=== PATIENT | male | born 1960 | race Caucasian/White ===

== ENCOUNTER 2016-10-13 07:49 | Observation (INO) ==
[2016-10-13] MEDS ORDERED: Aspirin 81 MG TAB.CHEW PO ONE (08:17)
--- NOTE | 2016-10-13 08:21 | Emergency Department Note ---
Disposition Clinical Impression: Unstable angina Chest pain Qualifiers: Chest pain type: unspecified Qualified Code(s): R07.9 - Chest pain, unspecified Disposition: Admitted As Inpatient Condition: Good Time of Disposition: 10:39 General Adult HPI - General Chief complaint: ED Abdominal Pain Stated complaint: epigastric pain and nausea Time Seen by Provider: 10/13/16 08:05 Source: patient Mode of arrival: ambulatory Limitations: no limitations Nursing Notes Reviewed: Yes Vital Signs Reviewed: Yes - History of Present Illness HPI Narrative: 56-year-old male history of CAD s/p 2 stents, severe hyperlipidemia, hypertension, diabetes presents with right upper quadrant pain. Reports pain started at 1999 last night after baking a cake and doing some errands. He went to lay down he felt and began to experience a sharp sensation to the right chest with some radiation to the midsternum. Pain is intermittent and currently there. He felt diaphoretic, short of breath and nauseated. This did not feel like his prior heart attacks which is more left and radiates into the jaw, he subsequently did not take any nitro for this pain. He denies any headache, recent illness, cough or abdominal pain. Denies any injury or trauma to the area. Denies diarrhea, constipation, or urinary symptoms. 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 Last heart catheterization over one year ago. Reports over 13 heart catheterizations. He took his baby aspirin this morning 630. He takes warfarin for his atrial fibrillation. Reports multiple ablations, he did experience some palpitations over the past few days which is odd for him. No changes in recent medications. Dr. Licona is his PCP. He has been started on a new medication for his hyperlipidemia, of note he reports it has been as high as 1999. History of cholecystectomy. Denies any alcohol use. Pain Scale: 7 - Related Data Home Medications Medication Instructions Recorded Confirmed ALPRAZolam [Xanax 0.5 MG Tablet] 0.5 mg PO BID PRN 10/13/16 10/13/16 Aspirin [Lo-Dose Aspirin EC] 81 mg PO QAM 10/13/16 10/13/16 Carvedilol [Coreg] 25 mg PO BID 10/13/16 10/13/16 Clopidogrel [Plavix] 75 mg PO QAM 10/13/16 10/13/16 Ergocalciferol (VITAMIN D2) 50,000 unit PO MO 10/13/16 10/13/16 [Vitamin D2] Evolocumab [Repatha Syringe] 140 mg SQ Q2W 10/13/16 10/13/16 Fish Oil/Dha/Epa [Fish Oil 1,200 1,200 mg PO BID 10/13/16 10/13/16 mg Fish Oil] Gabapentin [Neurontin] 300 mg PO TID 10/13/16 10/13/16 Lisinopril [Zestril] 10 mg PO BID 10/13/16 10/13/16 Nitroglycerin [Nitrostat] 0.4 mg SL AD PRN 10/13/16 10/13/16 Pantoprazole Sodium [Protonix] 40 mg PO QAM 10/13/16 10/13/16 Ranolazine [Ranexa] 1,000 mg PO BID 10/13/16 10/13/16 Sertraline [Zoloft] 100 mg PO QPM 10/13/16 10/13/16 Tramadol HCl [Ultram] 50 mg PO Q6H PRN 10/13/16 10/13/16 Warfarin [Coumadin] 5 mg PO QPM 10/13/16 10/13/16 amLODIPine [Norvasc] 10 mg PO QPM 10/13/16 10/13/16 metFORMIN [Glucophage] 1,000 mg PO BID 10/13/16 10/13/16 Allergies Allergy/AdvReac Type Severity Reaction Status Date / Time [id number] Reductase Allergy Severe Cramping Verified 10/13/16 10:20 Inhibitor of the [Statins] Muscles acetaminophen [From Fioricet] Allergy Itching Verified 10/13/16 10:20 butalbital [From Fioricet] Allergy Itching Verified 10/13/16 10:20 caffeine [From Fioricet] Allergy Itching Verified 10/13/16 10:20 citalopram [From Celexa] Allergy Itching Verified 10/13/16 10:20 hydrocodone [From Vicodin] Allergy Itching Verified 10/13/16 10:20 Oxycodone [From Percocet] Allergy Itching Verified 10/13/16 10:20 fluoxetine [From Prozac] AdvReac Dry Mucus Verified 10/13/16 10:20 Membranes Temazepam [From Restoril] AdvReac Dry Mucus Verified 10/13/16 10:20 Membranes trazodone AdvReac Dry Mucus Verified 10/13/16 10:20 Membranes Zolpidem [From Ambien] AdvReac See Verified 10/13/16 10:20 Comments All systems ED: reviewed and negative except as stated. Constitutional: Denies: fever, chills Cardiovascular: Reports: chest pain Respiratory: Reports: dyspnea. Denies: cough Gastrointestinal: Reports: abdominal pain, nausea. Denies: vomiting Genitourinary: Denies: urgency, dysuria Musculoskeletal: Denies: back pain, neck pain Integumentary: Denies: rash, abrasion Neurological: Denies: headache Past Medical History - Past Medical History Attestation: Yes The following information was validated with the patient. Source: patient Medical history: Reports: atrial fibrillation, diabetes, myocardial infarction - Social History Smoking Status: Never smoker Smokeless Tobacco Status: No Alcohol use: Reports: none Drug use: Reports: none Physical Exam - General Limitations: no limitations General appearance: alert, in no apparent distress, obese - Head Head exam: atraumatic, normocephalic, normal inspection - Eye Eye exam: Present: normal appearance, PERRL, EOMI. Absent: scleral icterus - ENT ENT exam: normal exam, normal oropharynx, mucous membranes moist - Neck Neck exam: Present: normal inspection, full ROM, trachea midline - Chest Chest inspection: Present: normal inspection, symmetric chest wall rise, tenderness (right chest, subcostal margin) - Respiratory Respiratory exam: Present: normal lung sounds bilaterally. Absent: respiratory distress, wheezes - Cardiovascular Cardiovascular exam: Present: regular rate, normal rhythm, normal heart sounds - Abdominal Exam Abdominal exam: Present: soft (obese), Non-Tender, normal bowel sounds. 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 Absent: tenderness, pedal edema, calf tenderness - Back Exam Back exam: Present: normal inspection, full ROM. Absent: tenderness, CVA tenderness (R), CVA tenderness (L), vertebral tenderness - Neurological Exam Neurological exam: Present: alert, oriented X3 - Psychiatric Psychiatric exam: Present: normal affect, normal mood - Skin Skin exam: Present: warm, dry, intact, normal color Course Course Narrative: 56-year-old male history of CAD s/p 2 stents and afib on coumadin presents with pain in the right chest. Started at 2000 last night while at rest diaphoretic, short of breath and nauseated. Patients afebrile and mildly hypertensive. He currently has pain in the right chest. On palpation it is not tender. Lungs are clear auscultation bilaterally. No pedal edema. EKG shows normal sinus rhythm without ST elevation or T wave inversion. Concern for possible ACS. Chest pain workup initiated. Will trial nitro for his pain. Anticipate admission. HEART score 4 pending troponin. - Reevaluation(s) Reevaluation #1: After one nitro patients pain has subsided significantly. Currently is chest pain free. Troponin is negative. EKG does not show any STEMI pattern. Chest x- ray is unremarkable. Plan to admit patient for unstable angina. Patient is in agreement with this plan. Time: 09:31 - Consultations Consultation #1: Spoke with on-call hospitalist laura Mccurdy to admit for chest pain and unstable angina. No further orders at this time Time: 10:00 Vital Signs Temperature 97.6 F 10/13/16 07:51 Pulse Rate 79 10/13/16 07:51 Respiratory Rate 16 10/13/16 07:51 Blood Pressure 154/96 10/13/16 07:51 O2 Sat by Pulse Oximetry 94 10/13/16 07:51 Temperature 97.4 F L 10/13/16 11:47 Pulse Rate 79 10/13/16 11:47 Respiratory Rate 15 10/13/16 11:47 Blood Pressure 146/86 10/13/16 12:38 O2 Sat by Pulse Oximetry 96 10/13/16 11:47 Oxygen Delivery Oxygen Delivery Room Air Medical Decision Making - Medical Records Medical records reviewed: Yes I reviewed the patient's medical records. - Lab Data Lab results reviewed: Yes I reviewed the patient's lab results. Result diagrams: 10/13/16 08:43 10/13/16 08:43 Lab Results 10/13/16 10/13/16 10/13/16 Range/Units 08:43 08:43 08:43 WBC 9.2 (4.3-11.1) K/mcL RBC 4.97 (4.19-5.50) M/mcL Hgb 13.8 (12.9-16.9) g/dL Hct 41.0 (37.5-50.1) % MCV 82.5 L (83.0-100.0) fL MCH 27.8 L (28.0-33.3) pg MCHC 33.7 (31.6-35.5) g/dL RDW 13.4 (11.5-14.5) % Plt Count 211 (140-400) K/mcL MPV 10.3 (9.4-12.4) fL Immature Gran % 0.8 (0-4) % Seg Neutrophils % 65.2 % Lymphocytes % 20.5 % Monocytes % 9.4 % Eosinophils % 3.8 % Basophils % 0.3 % Neutrophils # 6.0 (1.6-8.9) K/mcL Lymphocytes # 1.9 (0.6-4.6) K/mcL Monocytes # 0.9 (0.0-1.3) K/mcL Eosinophils # 0.4 (0.0-0.6) K/mcL Basophils # 0.0 (0.0-0.2) K/mcL PT 27.5 H (9.4-12.1) Seconds INR 2.5 Sodium 138 (136-145) mEq/L Potassium 3.8 (3.5-4.5) mEq/L Chloride 102 (98-109) mEq/L Carbon Dioxide 24 (19-29) mEq/L BUN 11 (8-26) mg/dL Creatinine 1.01 (0.72-1.25) mg/dL Est GFR ( Amer) > 60 (> 60) Est GFR (Non-Af Amer) > 60 (> 60) BUN/Creatinine Ratio 11 (6-26) Glucose 130 H (70-99) mg/dL Calculated Osmolality 287 (280-300) Calcium 9.7 (8.6-10.8) mg/dL Total Bilirubin (0.2-1.2) mg/dL Direct Bilirubin (0.0-0.5) mg/dL Indirect Bilirubin (0.0-1.2) mg/dL AST (5-34) Units/L ALT (0-55) Units/L Alkaline Phosphatase (38-126) Units/L Troponin I (0-0.03) ng/mL Serum Total Protein (6.0-8.3) g/dL Albumin (3.5-5.0) g/dL Globulin (2.4-3.5) g/dL Albumin/Globulin Ratio (1.1-2.2) Lipase (8-78) Units/L 10/13/16 10/13/16 Range/Units 08:43 08:43 WBC (4.3-11.1) K/mcL RBC (4.19-5.50) M/mcL Hgb (12.9-16.9) g/dL Hct (37.5-50.1) % MCV (83.0-100.0) fL MCH (28.0-33.3) pg MCHC (31.6-35.5) g/dL RDW (11.5-14.5) % Plt Count (140-400) K/mcL MPV (9.4-12.4) fL Immature Gran % (0-4) % Seg Neutrophils % % Lymphocytes % % Monocytes % % Eosinophils % % Basophils % % Neutrophils # (1.6-8.9) K/mcL Lymphocytes # (0.6-4.6) K/mcL Monocytes # (0.0-1.3) K/mcL Eosinophils # (0.0-0.6) K/mcL Basophils # (0.0-0.2) K/mcL PT (9.4-12.1) Seconds INR Sodium (136-145) mEq/L Potassium (3.5-4.5) mEq/L Chloride (98-109) mEq/L Carbon Dioxide (19-29) mEq/L BUN (8-26) mg/dL Creatinine (0.72-1.25) mg/dL Est GFR ( Amer) (> 60) Est GFR (Non-Af Amer) (> 60) BUN/Creatinine Ratio (6-26) Glucose (70-99) mg/dL Calculated Osmolality (280-300) Calcium (8.6-10.8) mg/dL Total Bilirubin 0.6 (0.2-1.2) mg/dL Direct Bilirubin 0.2 (0.0-0.5) mg/dL Indirect Bilirubin 0.4 (0.0-1.2) mg/dL AST 17 (5-34) Units/L ALT 24 (0-55) Units/L Alkaline Phosphatase 84 (38-126) Units/L Troponin I 0.00 (0-0.03) ng/mL Serum Total Protein 7.2 (6.0-8.3) g/dL Albumin 3.9 (3.5-5.0) g/dL Globulin 3.3 (2.4-3.5) g/dL Albumin/Globulin Ratio 1.2 (1.1-2.2) Lipase 29 (8-78) Units/L - Radiology Data Radiology results reviewed: Yes I reviewed the patient's radiology results. Chest X-Ray 10/13/16 08:17 IMPRESSION: No evidence of acute disease. D/ / Mateo Aceves MD / Mateo Aceves MD Interpreting Provider: Mateo Aceves MD - EKG Data EKG #1 EKG attestation: Yes I reviewed and interpreted this EKG. EKG results narrative: EKG performed 800 normal sinus rhythm 77 bpm, good R-R wave progression, normal axis, there are no ST elevations or depressions, no T-wave inversions. Old Q waves in lead III. Intervals are within normal limits WA interval 169 QRS 99 QT QTC 370 402. Compared to old EKG performed 01/28/2016 shows consistent findings. No acute ischemic changes. Attestation Statement - Attestation Attestation: I personally interviewed and examined this patient and my medical decision- making was reviewed with the ED Resident Physician, Dr. Avalos I agree with the documented findings, disposition and treatment plan as described except to the extent set forth below. Patient is a 56-year-old white male with a history of diabetes hypertension and hyperlipidemia who presents to the emergency room today with right-sided chest pain. Patient's been having intermittent episodes 36 hours. Patient with extensive coronary artery disease with multiple heart caths Including Multiple Stent Placement. Patient's Heart Doctors That He Sees Primarily As an Outpatient or an [place]. Patient states that during his last admission they did discuss possibility of coronary artery bypass possible definitive care for this ongoing angina. Patient with a history of A. fib, stating he has not had any episodes of tachycardia since his ablation except over the past week he has noticed transient episodes where he will have episodes of his heart racing last for a few minutes and then resolved. Patient has been in sinus rhythm here. I agree with physical exam findings as stated. EKG did not show any acute ST changes. Patient clinically had complete relief of symptoms following aspirin and nitroglycerin administration. Initial labs and chest x-ray are within normal limits. Maurice patient should be admitted for further evaluation of unstable angina. Patient agrees with admission. Patient remains hemodynamically stable at this time and chest pain-free.
[2016-10-13 08:50] LABS: Basophils % 0.3 %; Eosinophils # 0.4 K/mcL (0.0-0.6); Eosinophils % 3.8 %; Hemoglobin 13.8 g/dL (12.9-16.9); Immature Granulocytes % 0.8 % (0-4); Lymphocytes # 1.9 K/mcL (0.6-4.6); Lymphocytes % 20.5 %; Mean Corpuscular HGB Conc 33.7 g/dL (31.6-35.5); Mean Corpuscular Hemoglobin 27.8 pg (28.0-33.3); Mean Corpuscular Volume 82.5 fL (83.0-100.0); Mean Platelet Volume 10.3 fL (9.4-12.4); Monocytes # 0.9 K/mcL (0.0-1.3); Monocytes % 9.4 %; Platelet Count 211 K/mcL (140-400); Red Blood Count 4.97 M/mcL (4.19-5.50); Red Cell Distribution Width 13.4 % (11.5-14.5); Segmented Neutrophils % 65.2 %
[2016-10-13 09:00] LABS: INR 2.5; Prothrombin Time 27.5 Seconds (9.4-12.1)
[2016-10-13 09:03] LABS: BUN/Creatinine Ratio 11 (6-26); Blood Urea Nitrogen 11 mg/dL (8-26); Calcium 9.7 mg/dL (8.6-10.8); Carbon Dioxide 24 mEq/L (19-29); Chloride 102 mEq/L (98-109); Glucose 130 mg/dL (70-99); Osmolality,Calculated 287 (280-300); Potassium 3.8 mEq/L (3.5-4.5); Sodium 138 mEq/L (136-145); eGFR For African Americans > 60 (> 60); eGFR For Non-African Americans > 60 (> 60)
[2016-10-13] MEDS: Nitroglycerin 0.4 MG TAB.SUBL SL ONE ×3 (09:11→09:32)
[2016-10-13 09:26] LABS: Albumin 3.9 g/dL (3.5-5.0); Albumin/Globulin Ratio 1.2 (1.1-2.2); Bilirubin,Direct 0.2 mg/dL (0.0-0.5); Bilirubin,Indirect 0.4 mg/dL (0.0-1.2); Bilirubin,Total 0.6 mg/dL (0.2-1.2); Globulin 3.3 g/dL (2.4-3.5); Total Protein 7.2 g/dL (6.0-8.3)
[2016-10-13] MEDS ORDERED: Nitroglycerin 1 INCH/GM PACKET TP ONE (09:49)
[2016-10-13] MEDS ORDERED: Naloxone 0.4 MG/ML INJ IVP PRN (11:07)
[2016-10-13] MEDS ORDERED: Ondansetron 4 MG/2 ML VIAL IVP PRN (11:07)
[2016-10-13] MEDS ORDERED: Nitroglycerin 0.4 MG TAB.SUBL SL PRN (11:14)
[2016-10-13] MEDS ORDERED: ALPRAZolam 0.5 MG TABLET PO PRN (11:14)
[2016-10-13] MEDS ORDERED: *HR* Dextrose 50 % in Water (Syg) 50 ML SYRINGE IVP PRN (11:17)
[2016-10-13] MEDS ORDERED: D5% in Water 1,000 ML IVC PRN (11:17)
[2016-10-13] MEDS ORDERED: Dextrose Gel 15 GM PO PRN ×2 (11:17)
--- NOTE | 2016-10-13 11:25 | Internal Med History&Physical ---
<TrevordexterluisaLance carrasquillo - Last Filed: 10/13/16 13:12> Date of Encounter: 10/13/16 Time of Encounter: 10:30 Assessment and Plan (1) Chest pain Current visit: Yes Status: Acute Assess: Mr. Ribeiro presents with chief complaint of right upper quadrant pain in his chest that he describes as sharp and stabbing on the right side moving to midsternal accompanied with nausea but no vomiting. Patient states symptoms began approximately 8 PM yesterday with intermittent diaphoresis and shortness of breath. Patient states that this is not the typical pain he experienced with his previous [place] which radiated to his back. Previous EKG and EKG dated today show normal sinus rhythm and normal ECG. Patient reports history of heart caths x13 and stress tests x19. Plan: Trend troponins x2 Continuous cardiac telemetry ordered EV echocardiogram ordered Continue Coreg Continue Norvasc Continue Zestril Continue aspirin therapy Continue Plavix Continue Warfarin Continue Nitroglycerin PRN Qualifiers: Chest pain type: unspecified Qualified Code(s): R07.9 - Chest pain, unspecified (2) Unstable angina Current visit: Yes Status: Acute Assess: Mr. Ribeiro presents with chief complaint of right upper quadrant pain in his chest that he describes as sharp and stabbing on the right side moving to midsternal accompanied with nausea but no vomiting. Patient reports nitroglycerin seemed to help symptoms somewhat. Patient has history of CAD with placement of two Triton stents in 2012. Patient also has history of atrial fibrillation with ablation performed in 2010. Patient states his HR occasionally comes out of rhythm. Upon examination, patient's HR is regular and normal. EKG dated today confirms this. Plan: Trend troponins x2 Continuous cardiac telemetry ordered EV echocardiogram ordered Continue Coreg Continue Norvasc Continue Zestril Continue aspirin therapy Continue Plavix Continue Warfarin Continue Nitroglycerin PRN (3) Nausea Current visit: Yes Status: Acute Assess: Patient presents with nausea related to epigastric pain and right upper quadrant pain which she describes as nontypical chest pain for him. Patient denies vomiting. Plan: IV Zofran ordered PRN IV Protonix 40 mg daily ordered (4) Epigastric pain Current visit: Yes Status: Acute Assess: Patient presents with right upper quadrant pain radiating to midsternum. Patient reports eating plate of notches flow-limiting peppers, approximately 5 hours prior to symptoms. He should also reports waking up at night with acid reflux and urge to vomit. Plan: IV Protonix 40 mg daily ordered Cardiac diet ordered Patient educated on benefits of low-fat, low acidic/spicy diet (5) Sleep apnea Current visit: Yes Status: Acute Assess: Patient presents with history of chronic sleep apnea. Patient reports removal of his uvula and use of CPAP at bedtime. Plan: Supplemental O2 ordered with titration if SpO2 <92% Continuous SpO2 monitoring Cpap ordered HS Qualifiers: Sleep apnea type: unspecified type Qualified Code(s): G47.30 - Sleep apnea , unspecified (6) Metabolic syndrome Current visit: Yes Status: Acute Assess: Patient presents with high risk factors for cardiac event due to current metabolic syndrome. Patient's risk factors include excessive abdominal girth, hypertension, hyperlipidemia, and diabetes. Plan: Patient educated on dietary changes Nutritional consult ordered Continue HTN medications Patient to continue Repatha injections as ordered by PCP Lipid panel ordered Blood glucose monitoring ACHS Low-dose correction insulin ordered Hypoglycemia protocol ordered (7) HTN (hypertension) Current visit: Yes Status: Chronic Assess: Patient presents with history of chronic hypertension. Plan: Continue Norvasc Continue Zestril Monitor patient and vital signs Qualifiers: Hypertension type: essential hypertension Qualified Code(s): I10 - Essential (primary) hypertension (8) HLD (hyperlipidemia) Current visit: Yes Status: Chronic Assess: Patient presents with history of chronic hyperlipidemia. Patient states he is allergic to all statins and takes injections of Repatha bi-weekly. Patient's last Repatha injection was on 10/08/16. Plan: Lipid panel ordered Qualifiers: Hyperlipidemia type: pure hypercholesterolemia Qualified Code(s): E78.00 - Pure hypercholesterolemia, unspecified; E78.0 - Pure hypercholesterolemia (9) Diabetes Current visit: Yes Status: Acute Assess: Patient presents with history of chronic diabetes for which he currently takes metformin daily. 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 Plan: Continue Plavix Contionue warfarin Anti-embolic stockings ordered for bilateral LE Internal Medicine - H&P: HPI Chief complaint: Rt. UQ Chest Pain/Epigastric pain Admitted From: Emergency Dept Plans for Post Hospital Care: Home History of present illness: Mr. Ribeiro is a 56 year old male who presents from the ED with chief complaint of right upper quadrant pain in his chest that he describes as sharp and stabbing on the right side moving to midsternal accompanied with nausea but no vomiting. Patient states symptoms began approximately 8 PM yesterday with intermittent diaphoresis and shortness of breath. Patient also reports yesterday approximately 3 PM he ate a full plate of nachos with jalapeno peppers. He also states he likes spicy foods. Patient has not been diagnosed with GERD officially, he states he wakes up at night with a feeling of acid in his throat and nauseous. Patient states nitroglycerin helped alleviate symptoms. Patient has a medical history of atrial fibrillation, diabetes, myocardial infarction, HTN, HLD, CAD with 2 Triton stents placed approximately 4 years ago, heart ablation 6 years ago, sleep apnea for which he uses CPAP nightly, and history of 13 heart catheterizations in 19 stress tests which she reports stress tests have all come back unremarkable. He reports he was placed on Lasix previously which put him in stage III kidney failure and was discontinued. Kidney function has since returned to normal. Patient also reports he is allergic to statins and cannot take. Instead, he takes 2 injections per month of Repatha. Patient has a history of blood clot 1 in 1990 following a vasectomy. Mr. Ribeiro denies fever, chills, recent illness, diarrhea, vomiting, urinary symptoms, generalized weakness, or typical chest pain which she states usually radiates to his shoulder blades. Patient is at high risk due to his cardiac history is risk factors and will be placed as observation status to monitor symptoms further. Patient to be placed on IV Protonix 40 mg daily to determine if this alleviates symptoms. Orders for echocardiogram, trending troponins 2, continuous cardiac telemetry, IV Protonix , lipid panel, and continuation of patient's current meds. Time spent with patient greater than 40 minutes. Past Med Surg Social Fam HX - Past Medical History Source: patient Medical history: atrial fibrillation, diabetes, GERD, hyperlipidemia, hypertension, myocardial infarction, other (Sleep apnea w/Cpap) Psychiatric history: no psych history - Past Surgical History Surgical History: angioplasty/stent (x2 Triton stents), cholecystectomy, herniorrhaphy (x2 inguinal), vasectomy, other (Heart caths x13, Heart ablation) - Social History Smoking Status: Never smoker Smokeless Tobacco Status: No Alcohol use: none Drug use: none Occupational status: employed Current living situation: Home, With Family Activity Level: Independent ambulation Recent Out of Country Travel Within the Last 8 Weeks: No Exposure or Possible Exposure to Illness During Travel: No - Family History Father Race: Family Member Ethnicity: Non- Living Status: Age at : 35 Cause of : [place] Hx Family Cardiac Disorders: Yes ([place]) Mother Race: Family Member Ethnicity: Non- Living Status: Still Living Hx Family Cardiac Disorders: Yes ([place], Afib) Sister Race: Family Member Ethnicity: Non- Living Status: Still Living Hx Family Neuromuscular Disorders: Yes (Epilepsy) Internal Medicine - H&P: Meds ALPRAZolam [Xanax 0.5 MG Tablet] 0.5 mg PO BID PRN 10/13/16 [History] Aspirin [Lo-Dose Aspirin EC] 81 mg PO QAM 10/13/16 [History] Carvedilol [Coreg] 25 mg PO BID 10/13/16 [History] Clopidogrel [Plavix] 75 mg PO QAM 10/13/16 [History] Ergocalciferol (VITAMIN D2) [Vitamin D2] 50,000 unit PO MO 10/13/16 [History] Evolocumab [Repatha Syringe] 140 mg SQ Q2W 10/13/16 [History] Fish Oil/Dha/Epa [Fish Oil 1,200 mg Fish Oil] 1,200 mg PO BID 10/13/16 [History] Gabapentin [Neurontin] 300 mg PO TID 10/13/16 [History] Lisinopril [Zestril] 10 mg PO BID 10/13/16 [History] Nitroglycerin [Nitrostat] 0.4 mg SL AD PRN 10/13/16 [History] Pantoprazole Sodium [Protonix] 40 mg PO QAM 10/13/16 [History] Ranolazine [Ranexa] 1,000 mg PO BID 10/13/16 [History] Sertraline [Zoloft] 100 mg PO QPM 10/13/16 [History] Tramadol HCl [Ultram] 50 mg PO Q6H PRN 10/13/16 [History] Warfarin [Coumadin] 5 mg PO QPM 10/13/16 [History] amLODIPine [Norvasc] 10 mg PO QPM 10/13/16 [History] metFORMIN [Glucophage] 1,000 mg PO BID 10/13/16 [History] Allergies Xvfoeoy-Vrf-Mwc Reductase Inhibitor [Statins] Allergy (Severe, Verified 10:20) Cramping of the Muscles acetaminophen [From Fioricet] Allergy (Verified 10/13/16 10:20) Itching butalbital [From Fioricet] Allergy (Verified 10/13/16 10:20) Itching caffeine [From Fioricet] Allergy (Verified 10/13/16 10:20) Itching citalopram [From Celexa] Allergy (Verified 10/13/16 10:20) Itching hydrocodone [From Vicodin] Allergy (Verified 10/13/16 10:20) Itching Oxycodone [From Percocet] Allergy (Verified 10/13/16 10:20) Itching fluoxetine [From Prozac] Adverse Reaction (Verified 10/13/16 10:20) Dry Mucus Membranes Temazepam [From Restoril] Adverse Reaction (Verified 10/13/16 10:20) Dry Mucus Membranes trazodone Adverse Reaction (Verified 10/13/16 10:20) Dry Mucus Membranes Zolpidem [From Ambien] Adverse Reaction (Verified 10/13/16 10:20) See Comments Patient reported that this medication caused him to "sleep walk" All Systems PM: A 10-system review of systems was performed and is negative for pertinent findings except as documented above in the HPI. - Constitutional Constitutional: no chills, no fever(s), no night sweats - EENT Eyes: no change in vision, no discharge, no pain, no photophobia Ears: no ear discharge, no ear pain, no tinnitus Nose, mouth and throat: no dysphagia, no nasal discharge, no neck pain, no sore throat - Breasts Breasts: as per HPI - Cardiovascular Cardiovascular ROS IM: as per HPI, chest pain, dyspnea - Respiratory Respiratory: as per HPI, dyspnea - Gastrointestinal Gastrointestinal: as per HPI, dyspepsia, nausea - Genitourinary Genitourinary ROS male: as per HPI - Musculoskeletal Musculoskeletal ROS IM: no numbness, no tingling - Integumentary Integumentary IM: no rash, no unusual bruising - Neurological Neurological ROS: no confusion, no convulsions, no focal weakness, no numbness, no tingling, no tremor(s) - Psychiatric Psychiatric: as per HPI - Endocrine Endocrine IM: as per HPI - Hematologic/Lymphatic Hematologic/Lymphatic: no easy bruising - Allergic/Immunologic Allergic/Immunologic: as per HPI - Constitutional Vitals: Temp Pulse Resp BP Pulse Ox 97.6 F 77 18 119/88 96 10/13/16 07:51 10/13/16 09:22 10/13/16 10:19 10/13/16 10:19 10/13/16 09:22 General appearance: Present: cooperative, A&O X 3, pleasant, no acute distress, obese, answers questions appropriately - Head Head exam: Present: atraumatic, normocephalic - Eye Eye exam: Present: PERRL, conjuntiva pink, sclera anicteric Pupils: Present: PERRL - ENT ENT exam: Present: normal exam, normal external ear exam - Neck Neck exam general surgery: Present: supple, trachea midline. Absent: lymphadenopathy - Respiratory Respiratory exam: Present: CTAB. Absent: accessory muscle use, rales, rhonchi, wheezes - Cardiovascular Cardiovascular exam: Present: RRR, +S1, +S2. Absent: diastolic murmur, gallop, rubs, systolic murmur - GI/Abdominal GI/Abdominal exam: Present: normal bowel sounds, soft, no peritoneal signs. Absent: distended, tenderness - Rectal Rectal exam: Present: deferred - Additional comments: exam deferred. - Extremities Exam Extremities exam: Present: warm, radial pulses palpable and symetrical. Absent : calf tenderness, cyanotic, pedal edema - Back Exam Back exam: Present: normal inspection - Neurological Exam Neurological exam: Present: CN II-XII intact, oriented X3, no focal deficits. Absent: pronater drift, facial droop, speech deficit - Psychiatric Psychiatric exam: Present: normal affect, normal mood - Skin Skin exam: Present: dry, intact Internal Med - H&P Results - Labs CBC & Chem 7: 10/13/16 08:43 10/13/16 08:43 - EKG Data EKG shows normal: sinus rhythm Rate: normal - EKG Data Prior EKG available for review: yes When compared to previous EKG: there is no significant change Interpretation IM: normal EKG EKG comments: 10/13/16 11:36 EKG dated 01/28/16 shows sinus rhythm. EKG dated 10/13/16 shows sinus rhythm and normal ECG. - Diagnostic Studies Chest x-ray Additional comments: Impressions Chest X-Ray 10/13/16 08:17 IMPRESSION: No evidence of acute disease. D/ / Mateo Aceves MD / Mateo Aceves MD Interpreting Provider: Mateo Aceves MD <Rae Owens - Last Filed: 10/13/16 13:25> Date of Encounter: 10/13/16 Time of Encounter: 12:15 Internal Medicine - H&P: HPI History of present illness: Mr. Ribeiro is a 56 year old male All Systems PM: A 10-system review of systems was performed and is negative for pertinent findings except as documented above in the HPI. - Constitutional Vitals: Temp Pulse Resp BP Pulse Ox 97.4 F L 79 15 146/86 96 10/13/16 11:47 10/13/16 11:47 10/13/16 11:47 10/13/16 12:38 10/13/16 11:47 Internal Med - H&P Results - Labs CBC & Chem 7: 10/13/16 08:43 10/13/16 08:43 - Attending Attestation I examined this patient and my medical decision-making was reviewed with the nurse practitioner. I agree with the documented history of present illness, review of systems, past medical, surgical social and family histories and examination findings, disposition and treatment plan as described above except to any changes set forth below. 56-year-old male patient with a history of coronary artery disease status post stents and coronary artery bypass grafting presented to the ER with complaints of pain in the right upper quadrant abdomen and right lower chest wall. It has been going on since yesterday and progressively getting worse. It has not subsided. He received nitroglycerin. He denies any fever chills or night sweats. Currently he is also having an episode of chest pain in his back in between his shoulder blades which is where he usually gets chest pain. This was also relieved with nitroglycerin. EKG does not show any significant changes compared to previous. Chest x-ray does not show any acute process. On examination, patient has normal S1 and S2 without any pedal edema. No chest wall or epigastric tenderness. Chest pain: Precordial chest pain. High risk for ACS given her coronary artery disease with stents and CABG. We will trend troponins. Get 2-D echocardiogram. If echo cardiogram shows significant changes compared to previous, we will consult cardiology. Essential hypertension: Monitor blood pressure and resume home medications. Atrial fibrillation: Rate controlled. Anticoagulation with Coumadin. INR is therapeutic. Possible GERD: We will treat with PPI.
[2016-10-13] MEDS: Insulin LISPRO 300 UNITS/3 ML VIAL SQ SCH ×2 (12:49→16:40)
[2016-10-13] MEDS: Pantoprazole 40 MG VIAL IVP SCH (12:53)
[2016-10-13] MEDS: Gabapentin 300 MG CAPSULE PO SCH ×2 (16:39→20:48)
[2016-10-13] MEDS ORDERED: *HR* Warfarin 5 MG TABLET PO SCH (18:00)
[2016-10-13] MEDS ORDERED: amLODIPine 5 MG TABLET PO SCH (18:00)
[2016-10-13] MEDS: traMADol 50 MG TABLET PO PRN (20:48)
[2016-10-13] MEDS: Ranolazine 500 MG TAB.ER.12H PO SCH (20:48)
[2016-10-13] MEDS: Lisinopril 20 MG TABLET PO SCH (20:48)
[2016-10-13] MEDS ORDERED: Insulin LISPRO 300 UNITS/3 ML VIAL SQ SCH (21:00)
[2016-10-14 03:28] LABS: INR 2.3; Prothrombin Time 25.5 Seconds (9.4-12.1)
[2016-10-14 03:30] LABS: Activated Partial Thrombo Time 50.9 Seconds (26.0-36.0)
[2016-10-14] MEDS: traMADol 50 MG TABLET PO PRN (03:30)
[2016-10-14 03:36] LABS: Basophils % 0.4 %; Eosinophils # 0.3 K/mcL (0.0-0.6); Eosinophils % 3.5 %; Hematocrit 40.2 % (37.5-50.1); Hemoglobin 13.5 g/dL (12.9-16.9); Immature Granulocytes % 0.7 % (0-4); Lymphocytes # 2.5 K/mcL (0.6-4.6); Lymphocytes % 25.8 %; Mean Corpuscular HGB Conc 33.6 g/dL (31.6-35.5); Mean Corpuscular Hemoglobin 28.1 pg (28.0-33.3); Mean Corpuscular Volume 83.6 fL (83.0-100.0); Mean Platelet Volume 10.6 fL (9.4-12.4); Monocytes # 0.8 K/mcL (0.0-1.3); Monocytes % 8.4 %; Neutrophils # 5.8 K/mcL (1.6-8.9); Platelet Count 237 K/mcL (140-400); Red Blood Count 4.81 M/mcL (4.19-5.50); Red Cell Distribution Width 13.5 % (11.5-14.5); Segmented Neutrophils % 61.2 %
[2016-10-14 03:43] LABS: Alanine Aminotransferase 25 Units/L (0-55); Albumin 3.8 g/dL (3.5-5.0); Albumin/Globulin Ratio 1.1 (1.1-2.2); Alkaline Phosphatase 85 Units/L (38-126); Aspartate Amino Transferase 16 Units/L (5-34); BUN/Creatinine Ratio 11 (6-26); Bilirubin,Total 0.5 mg/dL (0.2-1.2); Blood Urea Nitrogen 12 mg/dL (8-26); Calcium 9.4 mg/dL (8.6-10.8); Carbon Dioxide 24 mEq/L (19-29); Chloride 104 mEq/L (98-109); Chol/HDL Ratio 5.3 (0-4.9); Cholesterol 181 mg/dL (< 200); Globulin 3.4 g/dL (2.4-3.5); Glucose 129 mg/dL (70-99); HDL Cholesterol 34 mg/dL (40-59); Osmolality,Calculated 289 (280-300); Potassium 3.6 mEq/L (3.5-4.5); Sodium 139 mEq/L (136-145); Total Protein 7.2 g/dL (6.0-8.3); Triglycerides 504 mg/dL (< 150); eGFR For African Americans > 60 (> 60); eGFR For Non-African Americans > 60 (> 60)
[2016-10-14] MEDS: Ranolazine 500 MG TAB.ER.12H PO SCH (08:37)
[2016-10-14] MEDS: Pantoprazole 40 MG VIAL IVP SCH (08:37)
[2016-10-14] MEDS: Gabapentin 300 MG CAPSULE PO SCH (08:37)
[2016-10-14] MEDS: Lisinopril 20 MG TABLET PO SCH (08:38)
[2016-10-14] MEDS: Insulin LISPRO 300 UNITS/3 ML VIAL SQ SCH (08:45)
[2016-10-14] MEDS ORDERED: Aspirin Enteric Coated 81 MG Tablet PO SCH (09:00)
[2016-10-14 12:07] VITALS: BP 164/102
--- NOTE | 2016-10-14 12:32 | Internal Med Progress Note ---
Date of Encounter: 10/14/16 Time of Encounter: 11:35 - Assessment and plan (1) Chest pain Current Visit: Yes Status: Acute Assessment and plan: Patient reports chest pain that began Saturday night at about 11 PM. Is located right upper quadrant and right low chest. He describes it as sharp and constant. He went to the emergency department at 6:30 AM yesterday morning after the pain lasted all night long. It was relieved with nitroglycerin 3 in the emergency department last night during the night the pain began when he put the BiPAP back on. He reports an approximately 10 pound weight gain over the last month, though he believes is due to decreased activity and increased intake of fast food. He does report that he has GERD symptoms. He also reports that he has had multiple stress tests, 13, and 2-3 coronary artery stents. He reports he does have 70% blockage to his maker. Patient had echocardiogram this morning that showed LVEF 55%. He has normal left ventricular size and systolic function, there is evidence of moderate diastolic dysfunction of left ventricle. There is normal right ventricular size and function, no significant valvular dysfunction and no pulmonary hypertension. Patient states that he does not want to see cardiology here, he says that he does not want to stay and have a stress test. He has had multiple stress tests multiple stents and he says he knows his body and wants to go home. His troponins are negative. EKG was normal sinus rhythm. Chest x-ray was negative. Qualifiers: Chest pain type: unspecified Qualified Code(s): R07.9 - Chest pain, unspecified (2) Epigastric pain Current Visit: Yes Status: Acute Assessment and plan: Patient denies epigastric pain at this time. He does report that he has reflux. Area is nontender to palpation liver enzymes are negative. (3) Nausea Current Visit: Yes Status: Acute Assessment and plan: Patient denies nausea this time. He denies epigastric pain. He denies right chest pain. (4) DVT prophylaxis Current Visit: Yes Status: Acute Assessment and plan: Patient was on Plavix and warfarin. KIZZY whyte. (5) HTN (hypertension) Current Visit: Yes Status: Chronic Assessment and plan: Chronic. Continue home medications. Qualifiers: Hypertension type: essential hypertension Qualified Code(s): I10 - Essential (primary) hypertension (6) HLD (hyperlipidemia) Current Visit: Yes Status: Chronic Assessment and plan: Chronic. Continue home medications. Patient said that he was on a brand-new medication for people who are statin intolerant and has seen a significant decrease in his lipid panel levels. Qualifiers: Hyperlipidemia type: pure hypercholesterolemia Qualified Code(s): E78.00 - Pure hypercholesterolemia, unspecified; E78.0 - Pure hypercholesterolemia (7) Sleep apnea Current Visit: Yes Status: Acute Assessment and plan: Chronic. Patient has CPAP at home. Continue Qualifiers: Sleep apnea type: unspecified type Qualified Code(s): G47.30 - Sleep apnea , unspecified (8) Metabolic syndrome Current Visit: Yes Status: Chronic (9) Diabetes Current Visit: Yes Status: Acute Assessment and plan: Continue home medications. 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: without senior care use Qualified Code(s): E11.8 - Type 2 diabetes mellitus with unspecified complications - Time Spent With Patient less than 15 minutes - Constitutional Vitals: Temp Pulse Resp BP Pulse Ox 97.7 F 74 16 164/102 97 10/14/16 12:05 10/14/16 12:05 10/14/16 12:05 10/14/16 12:05 10/14/16 12:05 General appearance: Present: cooperative, A&O X 3, pleasant, no acute distress, obese, answers questions appropriately - Head Head exam: Present: normal inspection - Eye Eye exam: Present: normal appearance, conjuntiva pink - ENT ENT exam: Present: mucous membranes moist, normal exam, normal external ear exam - Neck Neck exam general surgery: Present: normal inspection. Absent: lymphadenopathy , tenderness - Respiratory Respiratory exam: Present: CTAB. Absent: chest wall tenderness, decreased breath sounds, rales, respiratory distress, rhonchi, wheezes - Cardiovascular Cardiovascular exam: Present: RRR, +S1, +S2. Absent: clicks, diastolic murmur, systolic murmur - GI/Abdominal GI/Abdominal exam: Present: distended, firm, hernia, normal bowel sounds, soft. Absent: hepatomegaly, tenderness - Extremities Exam Extremities exam: Present: normal capillary refill, warm, radial pulses palpable and symetrical. Absent: pedal edema, tenderness - Neurological Exam Neurological exam: Present: alert, oriented X3, no focal deficits. Absent: facial droop, speech deficit - Skin Skin exam: Present: dry, normal color, warm. Absent: rash Internal Medicine: Result - Labs CBC & Chem 7: 10/14/16 02:55 10/14/16 02:55 Labs: Short CBC 10/14/16 Range/Units 02:55 WBC 9.5 (4.3-11.1) K/mcL Hgb 13.5 (12.9-16.9) g/dL Hct 40.2 (37.5-50.1) % Plt Count 237 (140-400) K/mcL Neutrophils # 5.8 (1.6-8.9) K/mcL BMP 10/14/16 02:55 Sodium 139 Potassium 3.6 Chloride 104 Carbon Dioxide 24 BUN 12 Creatinine 1.10 Glucose 129 H Calcium 9.4 Cardiac Enzymes 10/13/16 10/13/16 Range/Units 14:57 20:38 Troponin I 0.00 0.00 (0-0.03) ng/mL Liver Function 10/14/16 Range/Units 02:55 Total Bilirubin 0.5 (0.2-1.2) mg/dL AST 16 (5-34) Units/L ALT 25 (0-55) Units/L Alkaline Phosphatase 85 (38-126) Units/L Albumin 3.8 (3.5-5.0) g/dL - ABG Interpretation ABG results: PT/INR, D-dimer PT 25.5 Seconds (9.4-12.1) H 10/14/16 02:55 Consult Discharge Plan - Plan Referrals: Gabriel Licona MD [Primary Care Provider] -
--- NOTE | 2016-10-14 14:35 | Electrocardiograph Report ---
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
== END 2016-10-14 13:51 | disposition left against medical advice (07) ==
LOC: 3BNU 07:49 → EMEROO 07:49 → 3BNU 11:24
PROVIDERS: ADMIT Internal Medicine; ATTEND Registered Nurse